=== PATIENT | female | born 1950 ===

== ENCOUNTER 2021-05-20 04:47 | Day surgery (SDC) | payer OTHER, BC ==
[2021-05-16 08:18] VITALS: BMI 31.6
[2021-05-20] MEDS ORDERED: DEXAMETHASONE SOD PHOSPHATE 4 MG/1 ML VIAL ONE (10:58)
[2021-05-20] MEDS ORDERED: LIDOCAINE HCL/PF 2% SDV 5ML VIAL ONE (10:58)
[2021-05-20] MEDS ORDERED: PROPOFOL 20 ML ONE (10:58)
[2021-05-20] MEDS ORDERED: MIDAZOLAM HCL 2 MG/2 ML SINGLE DOSE VIAL ONE (10:58)
[2021-05-20] MEDS ORDERED: ceFAZolin SODIUM 1 GM VIAL IVPB ONE (11:20)
[2021-05-20] MEDS ORDERED: ceFAZolin SODIUM 1 GM VIAL ONE (11:21)
[2021-05-20] MEDS ORDERED: oxyCODONE HCL 5 MG TABLET PO PRN (11:23)
[2021-05-20] MEDS ORDERED: ONDANSETRON 4 MG/2 ML VIAL IVPUSH PRN (11:23)
[2021-05-20] MEDS ORDERED: LACTATED RINGERS SOLUTION 1,000 ML IV SCH (11:30)
[2021-05-20] MEDS ORDERED: ACETAMINOPHEN INJECTION 100 ML IVPB ONE (12:07)
[2021-05-20] MEDS ORDERED: ELECTROLYTE-148 SOLN 1,000 ML IV SCH (12:15)
[2021-05-20] MEDS ORDERED: ONDANSETRON 4 MG/2 ML VIAL ONE (12:21)
[2021-05-20] MEDS ORDERED: ACETAMINOPHEN 1000 MG/100 ML BAG IVPB ONE (13:00)
[2021-05-20] MEDS ORDERED: IBUPROFEN 600 MG TABLET (FP) PO ONE (13:33)
[2021-05-20 16:25] VITALS: BP 138/66; PULSE 80; TEMP 97.2
== END 2021-05-20 14:45 | disposition home or self-care (01) ==
LOC: JASU-SURG 04:47
PROVIDERS: ATTEND Urology
PROC: 0T9780Z Drainage of Left Ureter with Drainage Device, Via Natural or Artificial Opening Endoscopic (ICD-10-PCS; principal; 2021-05-20 11:00)
PROC: 0TB48ZX Excision of Left Kidney Pelvis, Via Natural or Artificial Opening Endoscopic, Diagnostic (ICD-10-PCS; 2021-05-20 11:00)
PROC: 0T748DZ Dilation of Left Kidney Pelvis with Intraluminal Device, Via Natural or Artificial Opening Endoscopic (ICD-10-PCS; 2021-05-20 11:00)
DX: D41.8 Neoplasm of uncertain behavior of other specified urinary organs (principal); E11.9 Type 2 diabetes mellitus without complications; I10 Essential (primary) hypertension
CPT/HCPCS: 76000-TC-FY; 82962; 87086; 88305-TC; 94760; J0131